=== PATIENT | female | born 1960 | race Caucasian/White ===

== ENCOUNTER 2019-07-17 09:25 | Outpatient (CLI) | payer BC, SELFPAY ==
--- NOTE | 2019-07-17 09:46 | MM_ITS ---
WS: [id number] BILATERAL DIGITAL DIAGNOSTIC MAMMOGRAM MAMMOGRAPHY WITH CAD CLINICAL INFORMATION: HX OF BREAST CA COMPARISON: June 14, 2018 TECHNIQUE: Bilateral CC, MLO, and ML views. FINDINGS: The breasts are composed of heterogeneous fibroglandular density, which can limit the detection of sm all underlying mass lesions. Lucent calcification right breast. 7 mm asymmetric density posterior dep th right breast best seen on the cc view midline appears new compared to previous examinations. Recom mend spot compression views and ultrasound if persistent. Left breast is unchanged. MM/[place] [id number] IMPRESSION: BI-RADS: 0-Incomplete: Need additional imaging evaluation FOLLOW UP: Need Additional Imaging
== END 2019-07-17 09:26 | disposition home or self-care (01) ==
LOC: RADSHAW 09:25
PROVIDERS: Family Provider Family Medicine; PCP Family Medicine; Visit Provider Family Medicine
DX: Z85.3 Personal history of malignant neoplasm of breast (principal)
CPT/HCPCS: 77066

== ENCOUNTER 2019-08-15 09:19 | Outpatient (CLI) | payer BC, SELFPAY ==
--- NOTE | 2019-08-15 09:24 | MM_ITS ---
WS: [id number] RIGHT DIGITAL MAMMOGRAPHY WITH CAD CLINICAL INFORMATION: RT BREAST DENSITY COMPARISON: July 17, 2019 TECHNIQUE: 4 views of the right breast were obtained. FINDINGS: The right breast is composed of heterogeneous fibroglandular density tissue, which can limit the dete ction of small underlying mass lesions. Again seen is the 7 mm asymmetric density posterior depth rig ht breast near the 12:00 position. Ultrasound is pending. ULTRASOUND BREAST RIGHT TECHNIQUE: Ultrasound right breast focused area of concern. CLINICAL INFORMATION: RT BREAST DENSITY COMPARISON: None. FINDINGS: Ultrasound right breast performed at the 12:00 position. Hypoechoic taller than wide lesion measuring 0.5 x 0.7 x 0.6 cm 3 cm from the nipple. This lesion is suspicious and appears solid. Recommend furt her evaluation with ultrasound-guided biopsy. MM/[place] [facility] [place] [id number] IMPRESSION: BI-RADS: 4B-Suspicious: Intermediate FOLLOW UP: US Guided Biopsy Recommended
== END 2019-08-15 09:20 | disposition home or self-care (01) ==
LOC: RADSHAW 09:21
PROVIDERS: Family Provider Family Medicine; PCP Family Medicine; Visit Provider Family Medicine
DX: N63.10 Unspecified lump in the right breast, unspecified quadrant (principal)
CPT/HCPCS: 76642; 77065

== ENCOUNTER 2019-09-04 12:37 | Outpatient (CLI) | payer BC, SELFPAY ==
--- NOTE | 2019-09-04 12:45 | US_ITS ---
WS: [id number] ULTRASOUND RIGHT BREAST HISTORY: RIGHT breast density 12:00 for which biopsy has been requested. COMPARISON: 08/15/2019, 07/17/2019, 06/14/2018 and 04/27/2017 TECHNIQUE: 2-D and Doppler. Recently described hypoechoic nodule in the RIGHT breast at 12:00 is not visualized today. There are no suspicious nodules or masses. Ultrasound biopsy will not be performed. Recommend 6 month follow-up RIGHT mammogram and possible ultrasound. Recently described nodule at 12: 00 in the RIGHT breast is not identified at the time of biopsy. Short-term follow-up recommended. US/US breast RT limited* [id number] IMPRESSION: BI-RADS: 3-Probably Benign FOLLOW-UP: 6 Month Follow-up
== END 2019-09-04 12:38 | disposition home or self-care (01) ==
LOC: RAD 12:41
PROVIDERS: Family Provider Family Medicine; PCP Family Medicine; Visit Provider Family Medicine
DX: N63.10 Unspecified lump in the right breast, unspecified quadrant (principal); N64.89 Other specified disorders of breast; R92.2 Inconclusive mammogram
CPT/HCPCS: 76642

== ENCOUNTER 2020-05-26 10:15 | Outpatient (CLI) | payer BC, SELFPAY ==
--- NOTE | 2020-05-26 10:25 | MM_ITS ---
WS: [id number] BILATERAL DIGITAL DIAGNOSTIC MAMMOGRAM MAMMOGRAPHY WITH CAD CLINICAL INFORMATION: 6 MO F/U RT BREAST DENSITY;HX BREAST CA COMPARISON: 08/15/2019 and 07/17/2019 TECHNIQUE: Bilateral CC, MLO, and ML views. FINDINGS: The breasts are composed of heterogeneous fibroglandular density, which can limit the detection of sm all underlying mass lesions. Again seen is the 7 mm asymmetric density posterior depth right breast n ear the 12:00 position. Ultrasound is pending. Left breast is unchanged. Stable benign calcifications. ULTRASOUND BREAST RIGHT TECHNIQUE: Ultrasound right breast focused area of concern. CLINICAL INFORMATION: 6 MO F/U RT BREAST DENSITY;HX BREAST CA COMPARISON: None. FINDINGS: Hypoechoic lesion at the 11:00 position measuring 1.0 x 0.4 x 0.6 cm is similar in appearance compare d to August 15, 2019. This is unchanged in size. Recommend additional six-month follow-up to confir m stability. Biopsy was previously attempted but lesion was difficult to visualize on the September 03 020 ultrasound. Incidental tiny hypoechoic lesion at the 9:00 position measuring 4.6 x 5.7 x 2.1 mm likely represents a small lymph node or complex cyst. MM/[place] [id number] IMPRESSION: BI-RADS: 3-Probably Benign FOLLOW UP: 6 Month Follow-up Recommend 6 month follow-up right diagnostic mammography and ultrasound to conf irm stability of the 11-12 o'clock lesion.
== END 2020-05-26 10:16 | disposition home or self-care (01) ==
LOC: RADSHAW 10:19
PROVIDERS: Family Provider Family Medicine; PCP Family Medicine; Visit Provider Family Medicine
DX: Z85.3 Personal history of malignant neoplasm of breast (principal); N64.89 Other specified disorders of breast
CPT/HCPCS: 76642; 77066

== ENCOUNTER 2020-12-08 12:39 | Outpatient (CLI) | payer BC, SELFPAY ==
--- NOTE | 2020-12-08 12:54 | MM_ITS ---
WS: [id number] DIAGNOSTIC RIGHT DIGITAL MAMMOGRAM WITH CAD RIGHT breast ultrasound, limited HISTORY: BREAST DENSITY COMPARISON: 05/26/2020, 08/15/2019, 07/17/2019 Technique: CC, MLO and ML views. Breast composition: The breasts are extremely dense, which lowers the sensitivity of mammography. Sandeep ign calcification in the lateral posterior RIGHT breast. The soft tissue asymmetry seen along the pos terior chest wall on the CC projection on the prior study is not identified. Ultrasound will be perfo rmed for further evaluation. RIGHT breast ultrasound, limited. The focal hypoechoic nodule along the posterior chest wall at 12:00, 3 cm from the nipple is again id entified measuring 8 x 10 x 7 mm. Very benign in appearance and similar to the prior study of 020. MM/[place] [id number] IMPRESSION: BI-RADS: 3-Probably Benign FOLLOW UP: 6 Month Follow-up Patient to return in 6 months for bilateral annual mammogram. Diagnostic imagin g of the RIGHT breast can also be performed. Recommend continued surveillance b y ultrasound of the probable benign hypoechoic nodule at 12:00.
== END 2020-12-08 12:40 | disposition home or self-care (01) ==
LOC: RADSHAW 12:42
PROVIDERS: Family Provider Family Medicine; PCP Family Medicine; Visit Provider Family Medicine
DX: R92.2 Inconclusive mammogram (principal); N63.15 Unspecified lump in the right breast, overlapping quadrants
CPT/HCPCS: 76642; 77065

== ENCOUNTER 2021-06-03 09:10 | Outpatient (CLI) | payer BC, SELFPAY ==
--- NOTE | 2021-06-03 09:16 | US_ITS ---
WS: [id number] Right breast ultrasound, 06/03/2021 Clinical Data: BREAST NODULE Comparison: Right breast ultrasound, 12/08/2020. Findings: The cystic area at the 12:00 position 3 cm from the nipple is no longer present. Only normal breast t issue can be seen. No cysts or masses are noted. US/US breast RT limited* [id number] Impression: 1. Normal breast tissue seen in the 12:00 position and the previously noted par acolic nodule is not present. 2. Recommend return to annual mammograms BIRADS: 1-Negative FOLLOW UP: See Report
--- NOTE | 2021-06-03 09:16 | MM_ITS ---
WS: [id number] Bilateral diagnostic digital mammogram, 06/03/2021 Clinical Data: BREAST NODULE Comparison: 06/03/2021, 12/08/2020, 05/26/2020, 08/15/2019, 07/17/2019, 06/14/2018, 04/27/2017, 04/14/2016 , 10/25/2015, 10/21/2014, 10/20/2013, 10/17/2012, 10/17/2012, 10/16/2011, 10/14/2010, 10/22/2009, 10/11/2009, 10/07/2008, 04/29/2008, 10/29/2007, 05/09/2007. Findings: The breasts show heterogeneous density. There is slight thickening of the skin of the right breast. N o clustered calcifications or spiculated masses are seen. MM/[place] [id number] Impression: 1. Negative bilateral mammograms unchanged. 2. Right breast ultrasound will be performed.. BIRADS: 2-Benign FOLLOW UP: See Report The CAD [employer] was used.
== END 2021-06-03 09:11 | disposition home or self-care (01) ==
LOC: RADSHAW 09:15
PROVIDERS: PCP Family Medicine; Visit Provider Family Medicine
DX: N63.0 Unspecified lump in unspecified breast (principal)
CPT/HCPCS: 76642; 77066

== ENCOUNTER 2022-06-29 11:06 | Outpatient (CLI) | payer BC, SELFPAY ==
--- NOTE | 2022-06-29 11:15 | MM_ITS ---
WS: [id number] Diagnostic DIGITAL BREAST TOMOSYNTHESIS MAMMOGRAM WITH CAD HISTORY: HX OF BREAST CA COMPARISON: 06/03/2021, 12/08/2020 Bilateral CC and MLO with tomosynthesis and synthetic mammography submitted. Computer aided detection analyzed. Breast composition: The breasts are heterogeneously dense, which may obscure small masses. 4 mm asymm etry just posterior to the RIGHT nipple seen only on the MLO projection. Not evident on prior studies and not evident on the current RIGHT CC projection. Otherwise no change. Benign calcification RIGHT breast. MM/[place] [id number] IMPRESSION: BI-RADS: 0-Incomplete: Need additional imaging evaluation FOLLOW UP: Need Additional Imaging RIGHT breast: Spot compression views (CC ). True ML. Ultrasound to follow if ab normality persists.
== END 2022-06-29 11:07 | disposition home or self-care (01) ==
PROVIDERS: PCP Family Medicine; Visit Provider Family Medicine
DX: Z85.3 Personal history of malignant neoplasm of breast (principal)
CPT/HCPCS: 77062; G0279

== ENCOUNTER 2022-07-07 12:59 | Outpatient (CLI) | payer BC, SELFPAY ==
--- NOTE | 2022-07-07 13:08 | MM_ITS ---
WS: [id number] Right breast diagnostic 3D tomosynthesis digital mammogram, 07/07/2022 Clinical Data: ABNORMAL MAMMO Comparison: 06/29/2022, 1220 08/31/2020, 12/08/2020, 05/26/2020 08/15/2019, 07/17/2019, 06/14/2018, 017, 04/14/2016, 10/25/2015, 10/21/2014, 10/20/2013, 10/17/2012, 10/16/2011, 10/14/2010, 10/22/2009, 10/12/19 10, 10/07/2008, 04/29/2008, 10/29/2007, 05/09/2007. Findings: The additional imaging of the right breast did not demonstrate the retroareolar nodule. There are no spiculated masses or clustered calcifications. There are no secondary signs of carcinoma. MM/[place] [id number] Impression: 1. Negative right breast mammogram. 2. Recommend return to annual mammograms. BIRADS: 1-Negative FOLLOW UP: 1 Year Follow-up .
== END 2022-07-07 13:00 | disposition home or self-care (01) ==
LOC: RAD 12:59
PROVIDERS: PCP Family Medicine; Visit Provider Family Medicine
DX: R92.8 Other abnormal and inconclusive findings on diagnostic imaging of breast (principal)
CPT/HCPCS: 77061; G0279

== ENCOUNTER 2024-02-20 08:52 | Outpatient (CLI) | payer BC, SELFPAY ==
--- NOTE | 2024-02-20 09:13 | MM_ITS ---
WS: [id number] DIAGNOSTIC BILATERAL DIGITAL BREAST TOMOSYNTHESIS MAMMOGRAPHY WITH CAD HISTORY: AXILLA PAIN COMPARISON: 07/07/2022, 06/29/2022 and 06/03/2021 TECHNIQUE: Bilateral craniocaudad, mediolateral oblique, and mediolateral views are submitted with to samantha and ANGELA. Computer aided detection utilized. Breast composition: The breasts are heterogeneously dense, which may obscure small masses. Volume los s and distortion in the RIGHT breast. This is consistent with a prior lumpectomy site. No chest wall is identified or pectoralis muscle on the RIGHT. There is a benign calcification RIGHT breast. LEFT b reast is negative. No suspicious masses or calcifications. MM/[place] [id number] IMPRESSION: BI-RADS: 0-Incomplete: Need additional imaging evaluation FOLLOW UP: Need Additional Imaging History states axillary pain. If there is continued pain ultrasound should be p erformed in that region.
== END 2024-02-20 08:53 | disposition home or self-care (01) ==
PROVIDERS: PCP Family Medicine; Visit Provider Nurse Practitioner Family
DX: R92.333 Mammographic heterogeneous density, bilateral breasts (principal); R92.1 Mammographic calcification found on diagnostic imaging of breast; Z98.890 Other specified postprocedural states; M79.629 Pain in unspecified upper arm
CPT/HCPCS: 77062; G0279

== ENCOUNTER 2024-04-29 10:34 | Outpatient (CLI) | payer MEDICARE, SELFPAY ==
--- NOTE | 2024-04-29 10:40 | US_ITS ---
WS: [id number] ULTRASOUND RIGHT BREAST HISTORY: History of breast cancer with prior RIGHT lumpectomy. RIGHT axillary pain provided on this d iagnostic mammogram. COMPARISON: 02/20/2024, 07/07/2022 TECHNIQUE: 2-D and Doppler. Postsurgical changes are noted on the mammogram in the axilla. There is no shadowing or mass identifi ed or suspicious abnormality noted by ultrasound. Patient denies having pain at this time. US/US breast RT limited* [id number] IMPRESSION: BI-RADS: 2- Benign FOLLOW-UP: 1 Year Follow-up Return to annual screening mammography.
== END 2024-04-29 10:35 | disposition home or self-care (01) ==
LOC: RAD 10:38
PROVIDERS: PCP Family Medicine; Visit Provider Family Medicine
DX: R92.8 Other abnormal and inconclusive findings on diagnostic imaging of breast (principal); Z98.890 Other specified postprocedural states
CPT/HCPCS: 76642

== ENCOUNTER → 2025-02-05 14:47 | Outpatient (BNVA) | payer MEDICARE, SELFPAY | PROVIDERS: PCP Family Medicine; Visit Provider Internal Medicine Cardiovascular Disease | DX: R07.9 Chest pain, unspecified (principal); I10 Essential (primary) hypertension; R09.89 Other specified symptoms and signs involving the circulatory and respiratory systems; I71.40 Abdominal aortic aneurysm, without rupture, unspecified | CPT/HCPCS: 93005 ==

== ENCOUNTER 2025-02-10 10:00 | Outpatient (CLI) | payer SELFPAY ==
--- NOTE | 2025-02-10 10:15 | CT_ITS ---
WS: [id number] CT CALCIUM SCORE REASON FOR VISIT: chest pain; Coronary artery disease risk assessment COMPARISON: None TECHNIQUE: Noncontrast coronary CT in combination with quantitative analysis performed on a separate workstation were used to determine CACS (Agatston score) TOTAL EXAM DOSE: 39.39 mGy.cm ECG GATING: Prospective SCAN RANGE: Pulmonary artery bifurcation to Inferior aspect of heart COMPLICATIONS: None FINDINGS: Technical Quality/Examination Quality: Good Limitaiton: None OVERALL SCORES Total calcium score: 36 Total volume score: 31 mm3 Percentile: 50th-75th percentile ARTERY SCORES Left main coronary artery: 7 Left anterior descending artery: 19 Left circumflex artery: 10 Right coronary artery: 0 OTHER FINDINGS: Mediastinum: Normal caliber thoracic aorta where visualized. No mediastinal or hilar lymphadenopathy. Thoracic aorta: Normal. Lungs: A tiny 3 mm nodule LEFT lower lobe laterally Upper Abdomen: Tiny esophageal hiatal hernia MINIMAL: 1-10 MILD: 11-100 MODERATE: 101-400 SEVERE:>400 CT/CT heart w calcium score [id number] IMPRESSION: Total calcium score of 36 is between the 50th and 75th percentile f or females between the ages of 65 and 69. GRADING OF CORONARY ARTERY DISEASE (BASED ON TOTAL CALCIUM SCORE) NO EVIDENCE OF CAD: 0 calcium score
== END 2025-02-10 10:01 | disposition home or self-care (01) ==
PROVIDERS: PCP Family Medicine; Visit Provider Internal Medicine Cardiovascular Disease
DX: R07.9 Chest pain, unspecified (principal)
CPT/HCPCS: 75571

== ENCOUNTER 2025-02-18 07:51 | Outpatient (CLI) | payer SELFPAY ==
--- NOTE | 2025-02-18 08:00 | USCV_ITS ---
Lacey Godinez Age: 64 Gender: F : 1960 Exam Date: 02/18/2025 08:23 Ordering Phys: Marisa Holcomb MD ([email or web address]) Technologist: TED [place] [facility] [place]: [place] Aortic Velocity @ SMA (cm/s) 46 RIGHT KIDNEY LEFT KIDNEY Velocity (cm/s) Velocity (cm/s) Sys/Pace Sys/Pace Resistive Index Resistive Index 96.1 / 37.3 0.61 Proximal Renal Artery 68.9 / 21.5 0.69 50.4 / 16.2 0.68 Mid Renal Artery 70.5 / 19.9 0.72 58.1 / 18.4 0.68 Distal Renal Artery 54.7 / 13.6 0.75 18.6 / 9.6 0.48 Hilar 43.6 / 11.1 0.75 19.6 / 7.9 0.60 Upper Pole 20.3 / 6.8 0.66 25.1 / 8.1 0.68 Mid Pole 27.3 / 9.7 0.64 27.1 / 8.0 0.70 Lower Pole 26.1 / 9.7 0.63 2.00 Renal Aortic Ratio 1.50 Accleration Time (sec) 0.02 Hilar 0.02 0.04 Upper Pole 0.03 0.08 Mid Pole 0.04 0.07 Lower Pole 0.08 7.3 Kidney Length (cm) 7.9 FINDINGS No comparisons. Mild bilateral renal atrophy. No evidence of abdominal aortic aneurysm. There is no evidence of hemodynamically significant right renal artery stenosis. There is no evidence of hemodynamically significant left renal artery stenosis. CONCLUSIONS No sonographic evidence of renal aortic stenosis or aneurysm. Dr. Shayy Moreau DO (Electronically Signed) Final Date: 18 February 2025 09:41 S
--- NOTE | 2025-02-18 08:45 | USCV_ITS ---
Lacey Godinez Age: 64 Gender: F : 1960 Exam Date: 02/18/2025 08:11 Ordering Phys: Marisa Holcomb MD ([email or web address]) Technologist: TED [place] [facility] [place]: [place] HISTORY: Diameter (cm) AP x Transverse x Length Velocity (cm/s) Waveform Prox Aorta: 1.73 x 1.58 x 71.00 Triphasic Mid Aorta: 1.58 x 1.58 x 38.70 Triphasic Distal Aorta: 1.41 x 1.37 x 79.50 Triphasic Right Iliac Prox: 0.73 x 0.81 x 86.70 Triphasic Left Iliac Prox: 0.75 x 0.75 x 102.30 Triphasic Stent Prox Landing x x Aneurysmal Sac Max x x Lt Lat Sac Dim Rt Lat Sac Dim Stent Dist Landing x x Right Iliac Stent x x Left Iliac Stent x x Right Renal Art Left Renal Art FINDINGS: Comparison: none available. No evidence of abdominal aortic or bilateral iliac aneurysm. Atherosclerotic plaque is noted in the abdominal aorta. CONCLUSIONS No evidence of abdominal aortic or bilateral iliac aneurysm. Dr. Shayy Moreau DO (Electronically Signed) Final Date: 18 February 2025 09:42 S
== END 2025-02-18 07:52 | disposition home or self-care (01) ==
LOC: RAD 07:51
PROVIDERS: PCP Family Medicine; Visit Provider Internal Medicine Cardiovascular Disease
DX: I70.0 Atherosclerosis of aorta (principal); I10 Essential (primary) hypertension; R09.89 Other specified symptoms and signs involving the circulatory and respiratory systems; N26.1 Atrophy of kidney (terminal)
CPT/HCPCS: 93975; 93978

== ENCOUNTER 2025-05-06 10:27 | Outpatient (CLI) | payer MEDICARE, OTHER, SELFPAY ==
--- NOTE | 2025-05-06 10:34 | MM_ITS ---
WS: [id number] DIAGNOSTIC BILATERAL DIGITAL BREAST TOMOSYNTHESIS MAMMOGRAPHY WITH CAD HISTORY: MAMMO SCREENING FOR MALIGNANT NEOPLASM OF BREAST COMPARISON: 07/07/2022, 06/29/2022, 12/08/2020 TECHNIQUE: Bilateral craniocaudad, mediolateral oblique, and mediolateral views are submitted with tomosynthesis and SM. Computer aided detection utilized. Breast composition: The breasts are heterogeneously dense, which may obscure small masses. Stable area of architectural distortion in the anterior lateral LEFT breast from prior surgery. No suspicious masses or calcifications identified. Stable fibroglandular pattern of the breasts. MM/MM diag BI tomosynthesis [id number] IMPRESSION: BI-RADS: 2 - Benign FOLLOW UP: 1 Year Follow-up
== END 2025-05-06 10:28 | disposition home or self-care (01) ==
LOC: RAD 10:28
PROVIDERS: PCP Family Medicine; Visit Provider Family Medicine
DX: Z12.31 Encounter for screening mammogram for malignant neoplasm of breast (principal); R92.333 Mammographic heterogeneous density, bilateral breasts; R92.323 Mammographic fibroglandular density, bilateral breasts; R92.8 Other abnormal and inconclusive findings on diagnostic imaging of breast; Z98.890 Other specified postprocedural states
CPT/HCPCS: 77062; G0279